=== PATIENT | male | born 1955 | race Caucasian/White ===

== ENCOUNTER 2024-05-21 12:35 | Outpatient (CLI) | payer OTHER, SELFPAY ==
--- NOTE | ~2024-05-21 | CT_ITS ---
Non-contrast CT scan of the Abdomen and Pelvis Clinical indication: Adrenal mass Technique: 2.5 mm axial scans were obtained through the abdomen and pelvis without intravenous or or al contrast. Dose reduction technique was used on this scan by utilizing automated exposure control a nd iterative reconstruction technique. The dose-length product (DLP) was 1120.24 mGy-cm. Findings: Images through the lung bases reveal no abnormalities. 9 mm nonobstructing left renal stone present. No right renal stone. No ureteral stone or hydronephros is on either side. The liver, spleen, pancreas, and gallbladder appear normal. Suggestion of small bilateral adrenal nod ules, low-density, compatible with adenomas. There is no aortic aneurysm. There is no evidence of bowel obstruction. Images through the pelvis were performed. There is no evidence of ascites or lymphadenopathy. Urinary bladder unremarkable. Prostate gland enlarged. Small fat-containing left inguinal hernia present. Impression: Small bilateral adrenal adenomas. 9 mm nonobstructing left renal stone. Enlarged prostate gland. Reviewed, dictated and finalized at [facility]. [facility] Impression: Small bilateral adrenal adenomas. 9 mm nonobstructing left renal stone. Enlarged prostate gland.
== END 2024-05-21 12:36 | disposition home or self-care (01) ==
LOC: MICIMG 12:35
PROVIDERS: PCP Family Medicine; Visit Provider Family Medicine
DX: E27.8 Other specified disorders of adrenal gland (principal); N28.1 Cyst of kidney, acquired; D35.01 Benign neoplasm of right adrenal gland; D35.02 Benign neoplasm of left adrenal gland; N20.0 Calculus of kidney; N40.0 Benign prostatic hyperplasia without lower urinary tract symptoms
CPT/HCPCS: 74176